=== PATIENT | male | born 1990 | race African-American/Black ===

== ENCOUNTER 2019-04-05 11:27 | Emergency (ER) | payer MEDICAID ==
[~2019-04-05] VITALS: Ht 177.8 cm; Wt 90.0 kg
[2019-04-05 12:40] VITALS: BP 116/68
[2019-04-05] MEDS ORDERED: KETOROLAC 60MG/2ML VIAL IM ONE (12:45)
== END 2019-04-05 12:48 | disposition home or self-care (01) ==
LOC: ER 11:27
DX: S16.1XXA Strain of muscle, fascia and tendon at neck level, initial encounter (principal); W18.39XA Other fall on same level, initial encounter; Y93.01 Activity, walking, marching and hiking; Y92.017 Garden or yard in single-family (private) house as the place of occurrence of the external cause
CPT/HCPCS: 96372; 99283; J1885

== ENCOUNTER 2024-02-16 11:15 | Emergency (ER) | payer SELFPAY ==
[~2024-02-16] VITALS: Ht 180.3 cm; Wt 74.0 kg
[2024-02-16 11:33] VITALS: O2SAT 100
[2024-02-16] MEDS: TETANUS, DIPHTHERIA, PERTUSSIS VAC/PF 0.5ML (>10YR OLD) IM ONE (12:04)
[2024-02-16] MEDS: LIDOCAINE HCL/PF 1% 10 MG/ML 5ML VIAL INFIL ONE (12:36)
[2024-02-16] MEDS ORDERED: LIDO700A15 TP (14:34)
[2024-02-16] MEDS ORDERED: NAPR-1176 MT (14:34)
[2024-02-16] MEDS: KETOROLAC 15MG/ML VIAL IM ONE (14:43)
[2024-02-16 15:42] VITALS: BP 112/83; PULSE 89; RESP 18; TEMP 98.8
== END 2024-02-16 15:38 | disposition home or self-care (01) ==
LOC: ER 11:15
DX: S01.111A Laceration without foreign body of right eyelid and periocular area, initial encounter (principal); S06.0X0A Concussion without loss of consciousness, initial encounter; Y08.89XA Assault by other specified means, initial encounter; Y93.89 Activity, other specified; Y92.89 Other specified places as the place of occurrence of the external cause; Y99.8 Other external cause status
CPT/HCPCS: 71045; 70450; 12013; 96372; 99285; J1885; J3490; Z7610